=== PATIENT | female | born 1975 | race Caucasian/White ===

== ENCOUNTER 2020-09-27 13:37 | Day surgery (SDC) | payer MEDICARE ==
[2020-09-27] MEDS ORDERED: LIDOCAINE HCL 2% 100 MG/5 ML IJ ONE (13:38)
[2020-09-27] MEDS ORDERED: DIPRIVAN 200 MG/20 ML IV ONE (15:02)
[2020-09-27] MEDS ORDERED: Lactated Ringers 1,000 ML IV ONE (15:30)
--- NOTE | 2020-09-27 16:24 | XRAY ---
Indication: Bilateral L4-S1 MBB. Intraoperative fluoroscopy provided for 12 seconds. Single digital spot image submitted for interpretation demonstrate posterior needle tips projecting over the expected left and right L4-S1 nerve roots. Correlate with intraoperative findings/report. Incidental bilateral L4-L5 posterior fusion hardware/intervertebral spacer and incompletely visualized IVC filter.
--- NOTE | 2020-09-27 16:26 | XRAY ---
12 seconds fluoroscopy time in surgery for bilateral L4-S1 MBB.
== END 2020-09-27 15:25 | disposition home or self-care (01) ==
LOC: SDC-PAIN 13:37
PROVIDERS: ATTEND Psychiatry & Neurology Pain Medicine
DX: M47.816 Spondylosis without myelopathy or radiculopathy, lumbar region (principal); I10 Essential (primary) hypertension; D68.51 Activated protein C resistance; F41.8 Other specified anxiety disorders; Z79.899 Other long term (current) drug therapy
CPT/HCPCS: 64493; 64494; 72020; 77002; J2704

== ENCOUNTER 2020-11-01 14:52 | Day surgery (SDC) | payer MEDICARE ==
[2020-11-01] MEDS ORDERED: BUPIVACAINE 0.5% VIAL IJ ONE (14:53)
[2020-11-01] MEDS ORDERED: Lactated Ringers 1,000 ML IV ONE (15:49)
[2020-11-01] MEDS ORDERED: DIPRIVAN 200 MG/20 ML IV ONE (16:00)
--- NOTE | 2020-11-02 11:35 | XRAY ---
15 seconds fluoroscopy time in surgery for bilateral L3-S1 MBB.
== END 2020-11-01 16:30 | disposition home or self-care (01) ==
LOC: SDC-PAIN 14:52
PROVIDERS: ATTEND Psychiatry & Neurology Pain Medicine
DX: M47.816 Spondylosis without myelopathy or radiculopathy, lumbar region (principal); I10 Essential (primary) hypertension; I82.409 Acute embolism and thrombosis of unspecified deep veins of unspecified lower extremity; F41.9 Anxiety disorder, unspecified; F32.9 Major depressive disorder, single episode, unspecified; Z79.899 Other long term (current) drug therapy
CPT/HCPCS: 64493; 64494; 64495; 72020; 77002; J2704

== ENCOUNTER 2020-11-29 14:39 | Day surgery (SDC) | payer MEDICARE ==
[2020-11-29] MEDS ORDERED: BUPIVACAINE 0.5% VIAL IJ ONE (14:40)
[2020-11-29] MEDS ORDERED: Xylocaine 1% Vial 30 ML PF IJ ONE (14:40)
[2020-11-29] MEDS ORDERED: Lactated Ringers 1,000 ML IV ONE (15:58)
[2020-11-29] MEDS ORDERED: DIPRIVAN 200 MG/20 ML IV ONE ×2 (16:40→16:54)
--- NOTE | 2020-11-29 20:37 | XRAY ---
Indication: Left L3-S1 RFA. Intraoperative fluoroscopy provided for 26 seconds. 3 digital spot image submitted for interpretation demonstrates posterior needle tips projecting over the expected left L3-S1 nerve roots. Correlate with intraoperative findings/report. Incidental bilateral L4-L5 posterior fusion hardware/intervertebral spacer and a IVC filter.
--- NOTE | 2020-11-30 08:44 | XRAY ---
26 seconds of fluoroscopy was used in surgery for a left L3-L4, L4-L5, and L5-S1 RFA.
== END 2020-11-29 17:15 | disposition home or self-care (01) ==
LOC: SDC-PAIN 14:39
PROVIDERS: ATTEND Psychiatry & Neurology Pain Medicine
DX: M47.816 Spondylosis without myelopathy or radiculopathy, lumbar region (principal); Z79.899 Other long term (current) drug therapy
CPT/HCPCS: 64635; 64636; 72100; 77002; J2001; J2704

== ENCOUNTER 2021-01-03 12:49 | Day surgery (SDC) | payer MEDICARE ==
[2021-01-03] MEDS ORDERED: BUPIVACAINE 0.5% VIAL IJ ONE (12:50)
[2021-01-03] MEDS ORDERED: Xylocaine 1% Vial 30 ML PF IJ ONE (12:50)
[2021-01-03] MEDS ORDERED: Lactated Ringers 1,000 ML IV ONE (14:07)
[2021-01-03] MEDS ORDERED: Ketamine HCl 50 MG/ML ONE (14:21)
[2021-01-03] MEDS ORDERED: DIPRIVAN 200 MG/20 ML IV ONE ×2 (14:21→14:31)
--- NOTE | 2021-01-03 17:00 | XRAY ---
Indication: Right L3-S1 RFA. Intraoperative fluoroscopy provided for 44 seconds. 3 digital spot image submitted for interpretation demonstrates posterior needle tips projecting over the expected right L3-S1 nerve roots. Correlate with intraoperative findings/report. Incidental bilateral L4-L5 posterior fusion hardware/intervertebral spacer and a IVC filter.
--- NOTE | 2021-01-03 17:04 | XRAY ---
44 seconds fluoroscopy time in surgery for right L4-S1 RFA.
== END 2021-01-03 15:00 | disposition home or self-care (01) ==
LOC: SDC-PAIN 12:49
PROVIDERS: ATTEND Psychiatry & Neurology Pain Medicine
DX: M47.816 Spondylosis without myelopathy or radiculopathy, lumbar region (principal); Z79.899 Other long term (current) drug therapy
CPT/HCPCS: 64635; 64636; 72100; 77002; J2001; J2704

== ENCOUNTER 2021-09-12 10:28 | Day surgery (SDC) | payer MEDICARE ==
[2021-09-12] MEDS ORDERED: Decadron 4 MG INJ IV ONE (10:29)
[2021-09-12] MEDS ORDERED: Xylocaine 1% Vial 30 ML PF IJ ONE (10:29)
--- NOTE | 2021-09-12 12:42 | XRAY ---
Indication: Pain and swelling. Currently on blood thinner therapy. Two-dimensional sonogram and color Doppler imaging of the major venous vessels of the right leg performed. Comparison: None No thrombus seen in the examined deep venous vessels of the right leg including greater saphenous vein. Veins demonstrate normal compressibility. Venous waveforms are normal with and without augmentation. Impression: Right leg negative for DVT.
[2021-09-12] MEDS ORDERED: BENADRYL 50 MG/ML ONE (13:06)
[2021-09-12] MEDS ORDERED: Versed 2 MG/2 ML Injection ONE (13:06)
[2021-09-12] MEDS ORDERED: Lactated Ringers 1,000 ML IV ONE ×2 (13:31→14:02)
[2021-09-12] MEDS ORDERED: DIPRIVAN 200 MG/20 ML IV ONE (13:56)
--- NOTE | 2021-09-12 14:48 | XRAY ---
Indication: Left C2-C4 MBB. Intraoperative fluoroscopy provided for 23 seconds. 2 digital spot images submitted for interpretation demonstrates posterior needle tips projecting over the expected left C2-C4 nerve roots. Correlate with intraoperative findings/report. Incidental partially visualized lower cervical fusion hardware.
--- NOTE | 2021-09-12 16:46 | XRAY ---
23 seconds of fluoroscopy was used in surgery for a left C2-C4 MBB.
== END 2021-09-12 14:20 | disposition home or self-care (01) ==
LOC: SDC-PAIN 10:28
PROVIDERS: ATTEND Psychiatry & Neurology Pain Medicine
DX: M47.812 Spondylosis without myelopathy or radiculopathy, cervical region (principal); I10 Essential (primary) hypertension; Z79.899 Other long term (current) drug therapy
CPT/HCPCS: 64490; 64491; 72040; 77002; 93971; J1100; J1200; J2001; J2250; J2704

== ENCOUNTER 2021-10-10 10:30 | Day surgery (SDC) | payer MEDICARE ==
[2021-10-10] MEDS ORDERED: Marcaine Mpf 0.5% Vial 30 Ml IJ ONE (10:31)
[2021-10-10] MEDS ORDERED: DIPRIVAN 200 MG/20 ML IV ONE (11:51)
[2021-10-10] MEDS ORDERED: Lactated Ringers 1,000 ML IV ONE (12:29)
--- NOTE | 2021-10-10 13:21 | XRAY ---
Indication: Left C2-C4 MBB. Intraoperative fluoroscopy provided for 16 seconds. 2 digital spot image submitted for interpretation demonstrates posterior needle tips projecting over the expected left C2-C4 nerve roots. Correlate with intraoperative findings/report. Incidental partially visualized lower cervical fusion hardware.
--- NOTE | 2021-10-10 13:34 | XRAY ---
16 seconds fluoroscopy time in surgery for left C2-C4 MBB.
== END 2021-10-10 12:20 | disposition home or self-care (01) ==
LOC: SDC-PAIN 10:30
PROVIDERS: ATTEND Psychiatry & Neurology Pain Medicine
DX: M47.812 Spondylosis without myelopathy or radiculopathy, cervical region (principal); I10 Essential (primary) hypertension; Z79.899 Other long term (current) drug therapy
CPT/HCPCS: 64490; 64491; 72040; 77002; J2704

== ENCOUNTER 2021-11-07 07:34 | Day surgery (SDC) | payer MEDICARE ==
[2021-11-07] MEDS ORDERED: XYLOCAINE-MPF 1% 5ML SDV IJ ONE (07:35)
[2021-11-07] MEDS ORDERED: Marcaine Mpf 0.5% Vial 30 Ml IJ ONE (07:35)
[2021-11-07] MEDS ORDERED: Decadron 4 MG INJ IV ONE (07:35)
[2021-11-07] MEDS ORDERED: BENADRYL 50 MG/ML ONE (08:10)
[2021-11-07] MEDS ORDERED: DIPRIVAN 200 MG/20 ML IV ONE (09:19)
[2021-11-07] MEDS ORDERED: Lactated Ringers 1,000 ML IV ONE (09:57)
--- NOTE | 2021-11-08 18:31 | XRAY ---
25 seconds fluoroscopy time in surgery for left C2-C4 RFA.
--- NOTE | 2021-11-09 15:48 | XRAY ---
Indication: Left C2-C4 RFA. Intraoperative fluoroscopy provided for 25 seconds. 2 digital spot images submitted for interpretation demonstrates posterior needle tips projecting over the expected left C2-C4 nerve roots. An anterior cervical fusion is seen within the lower cervical spine. Correlate with intraoperative findings/report.
== END 2021-11-07 09:52 | disposition home or self-care (01) ==
LOC: SDC-PAIN 07:34
PROVIDERS: ATTEND Psychiatry & Neurology Pain Medicine
DX: M47.812 Spondylosis without myelopathy or radiculopathy, cervical region (principal); Z79.899 Other long term (current) drug therapy
CPT/HCPCS: 01939; 64633; 64634; 72040; 77002; J1100; J1200; J2704

== ENCOUNTER 2021-12-26 07:39 | Day surgery (SDC) | payer MEDICARE ==
[2021-12-26] MEDS ORDERED: LIDOCAINE HCL 2% 100 MG/5 ML IJ ONE (07:40)
[2021-12-26] MEDS ORDERED: Xylocaine-Mpf 2% 5 Ml Vial ONE (08:40)
[2021-12-26] MEDS ORDERED: DIPRIVAN 200 MG/20 ML IV ONE (08:40)
[2021-12-26] MEDS ORDERED: Lactated Ringers 1,000 ML IV ONE (10:15)
--- NOTE | 2021-12-26 11:14 | XRAY ---
Indication: Right C2-C4 MBB. Intraoperative fluoroscopy provided for 16 seconds. 2 digital spot image submitted for interpretation demonstrates posterior needle tips projecting over the expected right C2-C4 nerve roots. Correlate with intraoperative findings/report. Incidental lower cervical fusion hardware.
--- NOTE | 2021-12-26 11:16 | XRAY ---
16 seconds fluoroscopy time in surgery for right C2-C4 MBB.
== END 2021-12-26 08:58 | disposition home or self-care (01) ==
LOC: SDC-PAIN 07:39
PROVIDERS: ATTEND Psychiatry & Neurology Pain Medicine
DX: M47.812 Spondylosis without myelopathy or radiculopathy, cervical region (principal); Z79.899 Other long term (current) drug therapy
CPT/HCPCS: 64490; 64491; 72040; 77002; J2704